=== PATIENT | male | born 1995 | race Caucasian/White ===

== ENCOUNTER 2016-08-29 16:02 | Emergency (ER) | payer SELFPAY ==
[~2016-08-29] VITALS: Ht 172.7 cm; Wt 71.3 kg
[~2016-08-29 16:02] MED LIST: HYDR-3989 PO; PROC-14 PO
[2016-08-29 16:10] VITALS: TEMP 98.4; Ht 172.7 cm; Wt 71.3 kg
[2016-08-29] MEDS ORDERED: NO ROUTINE MEDS (16:12)
[2016-08-29] MEDS ORDERED: LIDOCAINE 1% (10mg/ml) 30ml SDV INFIL ONE (16:30)
--- NOTE | 2016-08-29 17:19 | ERPDOC ---
Departure Disposition Decision Date: Aug 29, 2016 Disposition Decision Time: 17:17 (KHLOE CUELLAR APRN) Disposition: 01 DISCHARGED HOME, SELF-CARE Impression Impression (KHLOE CUELLAR APRN) Impression: Primary Impression: Finger laceration Encounter type: initial encounter Qualified Codes: S61.219A - Laceration without foreign body of unspecified finger without damage to nail, initial encounter Severity: Moderate (KHLOE CUELLAR APRN) Condition: Stable Seen By: Mid-level only (KHLOE CUELLAR APRN) Referrals: JULIO POWELL DO (Family) Patient Instructions: Finger Laceration (ED) Problems/Meds/Labs Reviewed?: Yes Medications reviewed and manag: Yes (KHLOE CUELLAR APRN) Additional Instructions: Have the sutures taken out if 10 days with your primary care provider. May cover the sutures areas with antibiotic ointment and gauze. Wash daily with soap and water. The areas with the dermabond, wash daily with soap and water. The dermabond will come off on its own over the next week. Do not apply antibiotic ointment to the dermabond as this will take it off too soon. Follow up care ordered?: Yes Mental Status: Alert, Oriented (KHLOE CUELLAR APRN) HPI - Skin General General Chief Complaint: Laceration Stated Complaint: LFT HAND LACERATION Time Seen by Provider: 16:13 Source: patient Exam Limitations: no limitations (KHLOE CUELLAR APRN) Time Seen by Provider: 16:13 (ESTUARDO OJEDA DO) HPI - Skin General Initial Comments He was at home today and was washing dishes. He broke a glass and he cut the left index finger and middle finger on the palmar surface. He also has a small laceration on the right ulnar pinky finger. He was seen in [place] a few weeks ago for thumb laceration and had an updated TDap at that time. Occurred At: home Onset: Rapid Duration: 1 hr Severity: moderate Location: extremities (left index and middle finger and right pinky finger) Possible Cause: other (cut with glass at home) Associated Symptoms: denies symptoms Hx of Similar Symptoms: No (KHLOE CUELLAR APRN) Allergies: Coded Allergies: sulfamethoxazole (Verified Allergy, Unknown, 05/03/15) trimethoprim (Verified Allergy, Unknown, 05/03/15) Past History Patient Surgical History Patient denies prior surgeries. (NOERIK,KHLOE N LIFE SKILLS TRAINER) Past Medical History Pt denies signifigant PMH (NOERIK,KHLOE N LIFE SKILLS TRAINER) Surgical History Denies Surgeries (NOERIK,KHLOE N LIFE SKILLS TRAINER) Vaccines Hx Influenza Vaccination: No Hx Pneumococcal Vaccination: No (NOLD,KHLOE N LIFE SKILLS TRAINER) Review of Systems Constitutional Constitutional: DENIES: fever (NOLD,KHLOE N LIFE SKILLS TRAINER) Musculoskeletal General: pain (at site of laceration) (NOLD,KHLOE N LIFE SKILLS TRAINER) Integumentary Skin: other (Laceration on the left index finger and middle finger on the palmar surface. Laceration on the right pinky finger) (NOLD,KHLOE N LIFE SKILL[employer] TRAINER) Neurological General: DENIES: numbness, tingling (NOERIK,KHLOE N LIFE SKILL[employer] TRAINER) Physical Exam General General Nourishment: well nourished, well developed, appears stated age, no acute distress, adult General Body Habitus: well groomed (NOERIK,KHLOE N LIFE SKILLS TRAINER) Vitals and Pain First Documented Vital Signs Date Time Temp Pulse Resp B/P Pulse Ox O2 Delivery O2 Flow Rate FiO2 08/29/16 16:10 98.4 82 16 149/81 100 Room Air (ESTUARDO OJEDA DO) Vitals and Pain Weight: Kilograms: 71.300 Height (feet): 5 Height (inches): 8.00 Triage Pain Scale: (NOERIK,KHLOE N LIFE SKILLS TRAINER) RN VS reviewed by Provider: Yes (NOERIKKHLOE N LIFE SKILLS TRAINER) Normal Exams: Musculoskeletal: No tenderness, or deformity noted, good range of motion, all extremities Neurologic: Patient is alert, and oriented Psychiatric: Patient exhibits, appropriate attention, emotion and affect (NOLD,KHLOE N LIFE SKILL[employer] TRAINER) Musculoskeletal (brief) Musculoskeletal Brief: FOUND: other (sensation is intact to distal fingers on left index and middle finger), NOT FOUND: deformity, loss of motion, tenderness (NOLD,KHLOE N LIFE SKILL[employer] TRAINER) Integumentary (brief) Integumentary Brief: FOUND: other (He has a 2 cm laceration on the palmar surface of the left index finger that is a flap. Also noted a 3 cm laceration on the palmar surface of the left middle finger over the middle phalanx. Small laceration noted on the right ulnar aspect of the pinky finger as well. ) (NOLD, KHLOE N LIFE SKILLS TRAINER) Differential Diagnoses Considering: Laceration, Other (Tendon injury, open fracture, FB in laceration. ) (NOLD,KHLOE N LIFE SKILLS TRAINER) Procedures Procedures Performed Procedures Performed: Laceration Repair (NOLDKHLOE N LIFE SKILLS TRAINER) Laceration/Wound Repair Wound/Laceration Repair #1: Wound Location: upper extremity (left index finger) Wound Length (cm): 2 Depth, Shape: subcutaneous, flap Explored: clean Irrigated: saline Prep: chlorasept Anesthesia: 1% Lidocaine Type of Block: local Repaired With: Sutures Suture Size: 5:0 Suture Type: prolene Number of Sutures: 3 Layer Closure?: No Wound/Laceration Repair #2: Wound Location: upper extremity (left middle finger) Wound Length (cm): 3 Depth, Shape: subcutaneous, flap Explored: clean Irrigated: saline Prep: chlorasept Anesthesia: 1% Lidocaine Type of Block: local Repaired With: Sutures Suture Size: 5:0 Suture Type: prolene Number of Sutures: 7 Layer Closure?: No Wound/Laceration Repair #3: Wound Location: upper extremity (left middle finger over PIP joint, minor laceration-superficial) Wound Length (cm): 1 Depth, Shape: superficial, linear Explored: clean Irrigated: saline Prep: chlorasept Repaired With: Dermabond Wound/Laceration Repair #4: Wound Location: upper extremity (right ulnar side of the pinky finger) Wound Length (cm): 1.5 Depth, Shape: superficial, linear Explored: clean Irrigated: saline Prep: chlorasept Repaired With: Dermabond (NOERIK,KHLOE N LIFE SKILL[employer] TRAINER) Progress Results/Orders Orders Procedure Category Date Status Time Lidocaine 1% PHA 08/29/16 Complete (Xylocaine 1%) 16:30 Dressing (Ed) EDM 08/29/16 Transmitted 17:21 Neomycin/Polymyxin/Bacitracin PHA 08/29/16 Complete (Neosporin 17:30 (ESTUARDO OJEDA DO) Medications Current ED Medications Lidocaine HCl (Xylocaine 1%) 100 mg O ONCE INFIL Last administered on t 16:49; Start 08/29/16 at 16:30; Stop 08/29/16 at 16:31; Status DC Neomycin/ Polymyxin/ Bacitracin (Neosporin) 1 applic O ONCE TOP Last administered on 08/29/16t 17:24; Start 08/29/16 at 17:30; Stop 08/29/16 at 17:31 ; Status DC (ESTUARDO OJEDA DO) Progress Progress Sutures out in the next 10 days with primary care provider. Let the dermabond fall off on its own. Wash daily with soap and water at home. If any increased redness/tenderness/swelling then follow up with PCP sooner. (KHLOE CUELLAR APRN) KHLOE CUELLAR APRN Aug 29, 2016 17:19 ESTUARDO OJEDA DO Aug 30, 2016 06:14
[2016-08-29 17:27] VITALS: BP 128/66; PULSE 57; RESP 19; O2SAT 100
[2016-08-29] MEDS ORDERED: NEOMYCIN/POLYM/BACITR OINT PACKET TOP ONE (17:30)
== END 2016-08-29 17:27 | disposition home or self-care (01) ==
LOC: ED 16:02
DX: S61.211A Laceration without foreign body of left index finger without damage to nail, initial encounter (principal); S61.213A Laceration without foreign body of left middle finger without damage to nail, initial encounter; S61.216A Laceration without foreign body of right little finger without damage to nail, initial encounter; W25.XXXA Contact with sharp glass, initial encounter; Y93.G1 Activity, food preparation and clean up; Y92.000 Kitchen of unspecified non-institutional (private) residence as the place of occurrence of the external cause; Y99.8 Other external cause status